=== PATIENT | female | born 1940 | race Caucasian/White ===

== ENCOUNTER 2019-04-16 16:39 | Emergency (ER) | payer MEDICARE ==
[~2019-04-16] VITALS: Ht 162.6 cm; Wt 59.0 kg
[~2019-04-16 16:39] MED LIST: ALEVE220 M2 PO; NORCO 5-325 TA1 EACH ORAL; SYMBICORT2 PUFF1 INH
--- NOTE | 2019-04-16 17:20 | Emergency Room Report ---
History of Present Illness General Chief Complaint: Hypertension Source: Medical Record Present Illness HPI 79-year-old female history of COPD history of rheumatoid arthritis on methotrexate, presents with hypertensive episode 1 day prior to arrival, blood pressure was greater than 200 systolic no aggravating relieving factors severity was severe, unknown duration of length, patient went to her doctor's office had her blood pressure check, patient was told to get her blood pressure rechecked again prior to starting antihypertensive medication, patient had an elevated blood pressure of 190 here, no headache no chest pain no new shortness of breath, patient has chronic shortness of breath at baseline on home oxygen no fever/chills no changes in vision, patient currently with asymptomatic hypertension Allergies: Coded Allergies: No Known Allergies (Unverified , 03/24/14) Patient History Past Medical History: see triage record Reviewed Nursing Documentation: PMH: Agreed; PSxH: Agreed Nursing Documentation-PMH Past Medical History: No History, Except For Hx COPD: Yes Hx Cerebrovascular Accident: No - RA, L HIP REPLACEMENT, BACK SURGERY Review of Systems All Other Systems: negative except mentioned in HPI Physical Exam Vital Signs Date Time Temp Pulse Resp B/P (MAP) Pulse Ox O2 Delivery O2 Flow Rate FiO2 04/16/19 16:46 98.1 102 28 192/83 (119) Nasal Cannula 3.0 Sp02 EP Interpretation: reviewed, abnormal - Reduced on oxygen General Appearance: well appearing, no apparent distress, alert Head: normocephalic, atraumatic Eyes: bilateral eye PERRL, bilateral eye EOMI ENT: uvula midline, moist mucus membranes Neck: supple, thyroid normal, supple/symm/no masses Respiratory: no respiratory distress, no retraction, no accessory muscle use, wheezing Cardiovascular #1: normal peripheral pulses, regular rate, rhythm, no edema, no gallop, no murmur Gastrointestinal: non tender, soft, no guarding, no rebound Musculoskeletal: normal inspection Neurologic: alert, oriented x3 Psychiatric: mood/affect normal Skin: no rash, warm/dry Medical Decision Making Diagnostic Impression: Primary Impression: Hypertension Qualified Codes: I10 - Essential (primary) hypertension ER Course 79-year-old female history of COPD history of rheumatoid arthritis presents with shortness of breath differential diagnosis includes worsening lung function , COPD, pneumonia, ACS Troponin negative, chest x-ray shows large lung volumes, patient with a symptom medic hypertension Counseled patient that we can start her on a low-dose amlodipine which she is amenable to Patient states that she has follow-up with her dispensary technician at [facility] as well as her tube teller at [facility] Will disposition patient home with return precautions, no acute pathology at this time, patient with worsening shortness of breath most likely secondary to her chronic COPD with increasing oxygen requirements that are better served at her dispensary technician at [facility] Dispo home w/ return precautions Laboratory Tests Test 04/16/19 17:49 White Blood Count 5.8 K/UL (4.8-10.8) Red Blood Count 4.98 M/UL (4.20-5.40) Hemoglobin 15.7 G/DL (12.0-16.0) Hematocrit 45.2 % (37.0-47.0) Mean Corpuscular Volume 91 FL (80-99) Mean Corpuscular Hemoglobin 31.6 PG (27.0-31.0) H Mean Corpuscular Hemoglobin Concent 34.8 G/DL (32.0-36.0) Red Cell Distribution Width 11.8 % (11.6-14.8) Platelet Count 143 K/UL (150-450) L Mean Platelet Volume 6.9 FL (6.5-10.1) Neutrophils (%) (Auto) 68.0 % (45.0-75.0) Lymphocytes (%) (Auto) 18.2 % (20.0-45.0) L Monocytes (%) (Auto) 6.8 % (1.0-10.0) Eosinophils (%) (Auto) 6.3 % (0.0-3.0) H Basophils (%) (Auto) 0.7 % (0.0-2.0) Sodium Level 140 MMOL/L (136-145) Potassium Level 4.1 MMOL/L (3.5-5.1) Chloride Level 104 MMOL/L (98-107) Carbon Dioxide Level 35 MMOL/L (21-32) H Anion Gap 1 mmol/L (5-15) L Blood Urea Nitrogen 14 mg/dL (7-18) Creatinine 0.7 MG/DL (0.55-1.30) Estimate Glomerular Filtration Rate mL/min (>60) Glucose Level 94 MG/DL (74-106) Calcium Level 9.0 MG/DL (8.5-10.1) Total Bilirubin 0.6 MG/DL (0.2-1.0) Aspartate Amino Transferase (AST) 23 U/L (15-37) Alanine Aminotransferase (ALT) 27 U/L (12-78) Alkaline Phosphatase 36 U/L (46-116) L Troponin I 0.003 ng/mL (0.000-0.056) Pro-B-Type Natriuretic Peptide 393 pg/mL (0-125) H Total Protein 7.0 G/DL (6.4-8.2) Albumin 3.7 G/DL (3.4-5.0) Globulin 3.3 g/dL Albumin/Globulin Ratio 1.1 (1.0-2.7) Lipase 105 U/L (73-393) EKG Diagnostic Results EKG Time: 17:48 EP Interpretation: NSR, rate 94, QTc 445, no acute ST elevations, normal axis Rhythm Strip Diag. Results Rhythm Strip Time: 19:44 EP Interpretation: yes Rate: 90 Rhythm: NSR, no PVC's, no ectopy Chest X-Ray Diagnostic Results Chest X-Ray Diagnostic Results : Chest X-Ray Ordered: Yes # of Views/Limited/Complete: 1 View Indication: Shortness of Breath EP Interpretation: Yes Interpretation: no consolidation, no effusion, no pneumothorax, no acute cardiopulmonary disease Impression: No acute disease Electronically Signed by: Brenton Galan MD Last Vital Signs Date Time Temp Pulse Resp B/P (MAP) Pulse Ox O2 Delivery O2 Flow Rate FiO2 04/16/19 16:46 98.1 102 28 192/83 (119) Nasal Cannula 3.0 Disposition: HOME, SELF-CARE Condition: Stable Scripts Amlodipine Besylate (Norvasc) 2.5 Mg Tablet 2.5 MG ORAL DAILY, #30 TAB Prov: Brenton Galan MD 04/16/19 Referrals: [facility] Patient Instructions: Hypertension, [id number] Additional Instructions: The patient was provided with discharge instructions, notified to follow-up with a primary care doctor and or specialist in the next 24-48 hours, and to return to the ED if they have worsening of their symptoms. Please note that this report is being documented using Central Test technology. This can lead to erroneous entry secondary to incorrect interpretation by the dictating instrument. Brenton Galan MD Apr 16, 2019 17:20
[2019-04-16 17:43] VITALS: BP 192/83
[2019-04-16 17:58] LABS: BASOPHILS % (AUTO) 0.7 % (0.0-2.0); EOSINOPHILS % (AUTO) 6.3 % (0.0-3.0); HEMATOCRIT 45.2 % (37.0-47.0); HEMOGLOBIN 15.7 G/DL (12.0-16.0); LYMPHOCYTES % (AUTO) 18.2 % (20.0-45.0); MEAN CORPUSCULAR VOLUME 91 FL (80-99); MONOCYTES % (AUTO) 6.8 % (1.0-10.0); PLATELET COUNT 143 K/UL (150-450); RED BLOOD COUNT 4.98 M/UL (4.20-5.40); RED CELL DISTRIBUTION WIDTH 11.8 % (11.6-14.8); WHITE BLOOD COUNT 5.8 K/UL (4.8-10.8)
[2019-04-16 18:20] LABS: ANION GAP 1 mmol/L (5-15); BLOOD UREA NITROGEN 14 mg/dL (7-18); CARBON DIOXIDE 35 MMOL/L (21-32); CHLORIDE 104 MMOL/L (98-107); CREATININE 0.7 MG/DL (0.55-1.30); POTASSIUM 4.1 MMOL/L (3.5-5.1); SODIUM 140 MMOL/L (136-145)
[2019-04-16 18:34] LABS: ALANINE AMINOTRANSFERASE 27 U/L (12-78); ALBUMIN 3.7 G/DL (3.4-5.0); ALBUMIN/GLOBULIN RATIO 1.1 (1.0-2.7); ALKALINE PHOSPHATASE 36 U/L (46-116); ASPARTATE AMINO TRANSFERASE 23 U/L (15-37); BILIRUBIN,TOTAL 0.6 MG/DL (0.2-1.0)
[2019-04-16 18:39] VITALS: BP 166/83
[2019-04-16] MEDS ORDERED: NORVASC2.5 MG ORAL (19:44)
[2019-04-16 19:55] VITALS: BP 166/83
--- NOTE | 2019-04-17 10:11 | Diagnostic Imaging Report ---
Indication: Shortness of breath Technique: One view of the chest Comparison: none Findings: Lungs and pleural spaces are clear. The heart size is normal. The aorta is calcified Impression: No acute process
--- NOTE | 2019-04-18 17:13 | Cardiology Report ---
APPROVED REPORT EKG Measurement Heart [id number] MD [id number] Normal sinus rhythm Normal ECG
== END 2019-04-16 19:55 | disposition home or self-care (01) ==
LOC: EMR 17:28
DX: I10 Essential (primary) hypertension (principal); Z96.642 Presence of left artificial hip joint
CPT/HCPCS: 36415; 71045; 80053; 83690; 83880; 84484; 85025; 93005; 99284